=== PATIENT | male | born 1940 | race Caucasian/White ===

== ENCOUNTER → 2019-09-03 13:46 | Outpatient (BNVA) | payer MEDICARE, OTHER, SELFPAY | PROVIDERS: Family Provider Family Medicine; PCP Family Medicine; Visit Provider Urology | DX: N47.1 Phimosis (principal); N48.1 Balanitis; N52.1 Erectile dysfunction due to diseases classified elsewhere | CPT/HCPCS: 81001 ==

== ENCOUNTER → 2020-10-28 09:21 | Outpatient (BNVA) | payer MEDICARE, OTHER, SELFPAY | PROVIDERS: Family Provider Family Medicine; PCP Family Medicine; Visit Provider Urology | DX: N48.1 Balanitis (principal); N39.9 Disorder of urinary system, unspecified; N52.1 Erectile dysfunction due to diseases classified elsewhere | CPT/HCPCS: 81003 ==

== ENCOUNTER 2021-03-24 08:04 | Outpatient (CLI) | payer MEDICARE, BC, SELFPAY ==
[2021-03-24 08:12] VITALS: BMI 27.1
--- NOTE | 2021-03-24 08:12 | NMCV_ITS ---
NM jamaal perf SPECT r/s* [id number] Tona Rose Age: 81 Gender: M : 1940 Exam Date: 03/24/2021 08:12 Ordering Phys: Lake Law M.D ([email or web address]) Technologist: PAULINE Ellison Exam Location: [facility] Indications: SHORTNESS OF BREATH STRESS TEST Please see separate stress test report in [facility] for full findings IMAGE PROTOCOL Rest/Stress 1 Lexiscan Day Radiopharmaceutical Dose (mCi) Administration Site Administered by Rest: Tc-99m 11.0 IV PAULINE Ellison Sestamibi Stress:Tc-99m 32.7 IV PAULINE Garcia Sestamibi Rest: 24-Mar-2021 60 Discovery 630 Stress: 24-Mar-2021 30 Discovery 630 0.4mg Lexiscan. Supine position only as patient was unable to lay prone. SPECT RESULTS Technical Quality: Excellent Raw Data Analysis: Normal Image Corrections: No attenuation or motion correction applied Summed Stress Score: 3 Summed Rest Score: 2 Summed Difference Score: 1 PERFUSION FINDINGS There is a small sized partially reversible perfusion defect in apical lateral wall. This likely represents prior infarct with small area of lana-infarct ischemia. There is also a reversible small in size perfusion defect in mid inferior wall. This is likely from small area of ischemia. FUNCTIONAL RESULTS (calculated via Gated SPECT) Stress Image LV EF (%): 61 Stress EDV (mL):104 TID: 0.97 Stress ESV (mL):41 FUNCTIONAL FINDINGS: There is normal left ventricular systolic function. IMPRESSIONS 1. Abnormal myocardial perfusion imaging. Small sized prior infarct with lana-infarct ischemia seen in lateral wall. 2. Small area of ischemia is noted in inferior wall. 3. LV systolic function is normal. Lake Law MD (Electronically Signed) Final Date: 24 March 2021 14:41 S
--- NOTE | 2021-03-24 08:12 | ECG_ITS ---
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 Interpretive Statements NAME OF STUDY: LEXISCAN SESTAMIBI STRESS TEST INDICATION: [Shortness of Breath, ] Procedure: At the baseline, the blood pressure was 136/103 mmHg with a heart rate of 63 bpm. The electrocardiogram showed normal sinus rhythm, normal axis with normal ST and T's. The Lexiscan was infused over a period of 20 seconds. A total of 0.4 mg of Lexiscan was infused. The stress phase was continued for a total of 5 minutes. Heart rate was at the end of stress phase was 83 bpm and a blood pressure of 124/69 mmHg. The EKG at the peak infusion revealed since normal sinus rhythm with no significant ST-T wave changes, occasional PVC was noted. Sestamibi was injected 20 seconds after the Lexiscan infusion. Blood pressure at the end of recovery phase was 117/65 mmHg with a heart rate of 73 bpm. Conclusion: 1. Normal EKG response to Lexiscan infusion 2. No Lexiscan induced chest pain or cardiac arrhythmia. 3. Normal blood pressure and heart rate response. 4. Sestamibi/sestamibi perfusion scan pending; see separate report. Electronically Signed On 03-27-2021 12:17:02 CDT by Lake Law M.D. [id number]
[2021-03-24] MEDS: regadenoson 0.4 Mg/5 ml Syringe IVP (10:06)
[2021-03-24 10:07] VITALS: BP 117/65; PULSE 84
== END 2021-03-24 08:05 | disposition home or self-care (01) ==
PROVIDERS: PCP Family Medicine; Visit Provider Internal Medicine
DX: R06.02 Shortness of breath (principal); I25.9 Chronic ischemic heart disease, unspecified
CPT/HCPCS: 78452; 93017; A9500; J2785

== ENCOUNTER 2021-04-01 10:45 | Outpatient (CLI) | payer MEDICARE, SELFPAY ==
--- NOTE | 2021-04-01 11:00 | CT_ITS ---
WS: [id number] CT CHEST TECHNIQUE: Noncontrast CT of the chest with coronal and sagittal reformatted images. CLINICAL INFORMATION: Chronic smoker with weight loss COMPARISON: CT December 16, 2018 DLP: 945.[address] scans at [facility] use at least one of these dose optimization techniques: automated e xposure control; mA and/or kV adjustment per patient size (includes targeted exams where dose is matc hed to clinical indication); or iterative reconstruction. FINDINGS: Moderate chronic emphysematous changes. No focal pneumonia or pleural fluid. Patchy micronodular tree -in-bud infiltrates in the right upper lobe anteriorly progressed since the prior examination. Bilate ral bronchovascular thickening with bronchiectasis unchanged from previous. Tree-in-bud type infiltra aleida in the lower lobes are unchanged from previous. Aortic calcification. Coronary calcification. Normal caliber thoracic aorta. Large esophageal hiatal hernia with intrathoracic stomach unchanged from previous. No axillary lymphadenopathy. Adrenal gland s are normal. Bilateral renal cysts. Fatty atrophy of the pancreas. Moderate thoracic kyphosis with h ypertrophic changes. CT/CT chest wo con [id number] IMPRESSION: 1. Patchy micronodular tree-in-bud type infiltrates in both lower lobes are un changed. Progressed Tree-in-bud infiltrates in right upper lobe anteriorly. Thi s can be seen with chronic infectious/inflammatory bronchiolitis. 2. Bronchovascular thickening with bronchiectasis unchanged. 3. No focal pneumonia or pleural fluid. 4. No mediastinal or hilar lymphadenopathy. 5. Large esophageal hiatal hernia with intrathoracic stomach.
--- NOTE | 2021-04-01 11:01 | XR_ITS ---
WS: [id number] PROCEDURE: XR chest 2V* [id number] CLINICAL INFORMATION: COUGH COMPARISON: 3 FINDINGS: Esophageal hiatal hernia. Heart: Normal cardiac silhouette. Lungs: Moderate chronic emphysematous changes. No acute appearing pulmonary infiltrates. No focal pne umonia or pleural fluid. Bones: Mild thoracic kyphosis. Osteopenia. Hypertrophic changes thoracic spine. XR/XR chest 2V* [id number] IMPRESSION: 1. Moderate chronic emphysematous changes. 2. Tree-in-bud type infiltrates better seen on the concurrent CT 3. Esophageal hiatal hernia. 4. No focal pneumonia or pleural fluid.
== END 2021-04-01 10:46 | disposition home or self-care (01) ==
PROVIDERS: PCP Family Medicine; Visit Provider Internal Medicine Pulmonary Disease
DX: F17.210 Nicotine dependence, cigarettes, uncomplicated (principal); R63.4 Abnormal weight loss; R05 Cough; R91.8 Other nonspecific abnormal finding of lung field; K44.9 Diaphragmatic hernia without obstruction or gangrene; J47.9 Bronchiectasis, uncomplicated
CPT/HCPCS: 71046; 71250

== ENCOUNTER → 2021-04-28 11:40 | Outpatient (BNVA) | payer MEDICARE, SELFPAY | PROVIDERS: PCP Family Medicine; Visit Provider Internal Medicine Pulmonary Disease | DX: J44.9 Chronic obstructive pulmonary disease, unspecified (principal); Z01.818 Encounter for other preprocedural examination; Z20.822 Contact with and (suspected) exposure to COVID-19 | CPT/HCPCS: 87635 ==

== ENCOUNTER 2021-05-04 08:53 | Outpatient (CLI) | payer MEDICARE, BC, SELFPAY ==
--- NOTE | 2021-05-04 10:44 | PFTS_ITS ---
Date of Study:05/04/21 Date of Dictation: MECHANICS: Forced vital capacity (FVC) is normal. Forced expiratory volume in one second (FEV1) is normal. FEV1/FVC is reduced. FLOW VOLUME LOOP: Reduced flow at all lung volumes with scooping. LUNG VOLUMES: Total lung capacity (TLC) is normal. Residual volume (RV) is increased. DIFFUSING CAPACITY FOR CARBON MONOXIDE: . INTERPRETATION: The pulmonary function tests are consistent with mild airflow obstruction. There is no significant postbronchodilator response. Lung volumes are consistent with air trapping. Gas exchange (DLCO) is mildly reduced. MTDD
== END 2021-05-04 08:54 | disposition home or self-care (01) ==
PROVIDERS: Visit Provider Internal Medicine Pulmonary Disease
DX: J44.9 Chronic obstructive pulmonary disease, unspecified (principal)
CPT/HCPCS: 94060; 94618; 94726; 94729; J7611

== ENCOUNTER 2021-08-12 22:07 | Emergency (ER) | payer MEDICARE, OTHER, SELFPAY ==
[2021-08-12 22:12] VITALS: BP 159/98; PULSE 103; RESP 16; TEMP 36.3; O2SAT 97
--- NOTE | 2021-08-13 01:00 | PC.NURSE ---
patient states was laying in bed when throat started to hurt, became SOB, and started to cough. states this has been happening for years and just now started to seek medical attention. states attempted to get scope done at [facility] but the machine did not work. managing secretions, speech clear, noted with cough that sounds dry.
--- NOTE | 2021-08-13 01:30 | XRR_ITS ---
PROCEDURE INFORMATION: Exam: XR Soft Tissue Neck Exam date and time: 08/13/2021 1:30 AM Age: 81 years old Clinical indication: Tonsilitis and other: Possible foreign body; Prior surgery; Patient HX: Patient states feels like something stuck in throat. ; Additional info: Fb sensation TECHNIQUE: Imaging protocol: XR of the soft tissues of the neck. COMPARISON: CT neck w con* [id number] 11/18/2018 9:03 AM FINDINGS: Airway: No radiopaque foreign body in the airway. Soft tissues: Small chronic radiopaque foreign body in the submental space. No radiopaque foreign body in the cervical esophagus. Bones/joints: The cervical spine demonstrates marked degenerative changes at multiple levels. XR/XR soft tissue neck [id number] IMPRESSION: 1. No acute abnormality. 2. No radiopaque foreign body in the pharynx.
[2021-08-13] MEDS: lidocaine 2% viscous 15 ML, aluminum-mag hydrox-simethicon 30 ML, sucralfate oral liq 1 GM PO (01:45)
[2021-08-13] MEDS: lidocaine 2% viscous 15 mL UDC 10 ML MUCOUS MEM (02:50)
[2021-08-13 02:55] VITALS: BP 156/80; PULSE 87; RESP 16; TEMP 36.9; O2SAT 98
--- NOTE | 2021-08-13 04:20 | ED_ITS ---
HPI - Skin/Abscess/Foreign Bdy General: Chief complaint: Airway/Esophagus Foreign Body Stated complaint: sob Time Seen by Provider: 08/13/21 00:51 History of Present Illness: 81-year-old male with foreign body sensation in his throat. He states that he choked while taking some cough medicine, and feels like something is stuck in the back of his throat. He is able to swallow and tolerate his own secretions. He is still coughing. He states that this sensation is triggering his cough. No vomiting. No shortness of breath, no airway swelling. complaint: foreign body Onset (ago): hour(s) Location: neck Severity: moderate Quality: burning Pain Consistency: constant Relieving factors: none Exacerbating factors: none Associated symptoms: Reports cough and nausea; Deny chills, fever(s), itching, rigidity, short of breath or vomiting Review of Systems Const: Denies: fever(s) or chills Eyes: Denies: change in vision ENMT: Reports: throat pain; Denies: uvular edema Card: Denies: chest pain or palpitations Resp: Reports: non-productive cough; Denies: dyspnea or productive cough GI: Reports: nausea; Denies: vomiting Skin/Breast: Denies: rash Neuro: Denies: headache(s) PFSH ED PFSH: Medical History (Updated 08/13/21 @ 02:51 by Flex Valadez DO) Balanitis Coronary artery disease Erectile dysfunction Essential hypertension Surgical History H/O heart artery stent H/O neck surgery H/O shoulder surgery Family History Mother , 80 CAD (coronary artery disease) Cancer Father , 90 CAD (coronary artery disease) Social History Quit status (tobacco): has tried quititng Alcohol intake: never Marital status: / Current occupational status: retired History of recent travel: No Physical Exam Const: COMMON NORMALS: patient oriented x3 and no limitations GENERAL APPEARANCE: cooperative and anxious HENMT: COMMON NORMALS: normocephalic, atraumatic and Normal external nose present HEAD & SCALP: normocephalic and atraumatic FACE & SINUS: normal facial exam NOSE: Normal external nose present and Normal nares present THROAT: posterior oropharynx abnormal erythema; no cobblstoning, no edema and no exudates; no uvular edema Eye: COMMON NORMALS: Equal, round and reactive pupils present and EOMs intact bilaterally GENERAL EYE: appearance normal, both eyes and all related structures PUPIL: Yes Equal, round and reactive pupils present Chest: COMMONS NORMALS: normal inspection of the chest Resp: COMMON NORMALS: normal respiratory effort and No use of accessory muscles EFFORT & INSPECTION: Yes able to speak in complete sentences and No labored Cardio: COMMON NORMALS: regular rate and regular rhythm RATE: regular rate RHYTHM: regular rhythm GI: COMMON NORMALS: Normal to inspection, nondistended, normoactive bowel sounds present and Soft to palpation PALPATION: Yes Soft to palpation Neuro: COMMON NORMALS: patient oriented x3 Course Vital Signs: Vital signs: Vital Signs Temperature 98.4 F 08/13/21 02:55 Pulse Rate 87 08/13/21 02:55 Respiratory Rate 16 08/13/21 02:55 Blood Pressure 156/80 08/13/21 02:55 Pulse Oximetry 98 08/13/21 02:55 MDM - Skin/Abscess/Foreign Bdy Medicial Decision Making GI cocktail seem to help with pain. X-ray soft tissue of the neck reveals a subcutaneous foreign body that is been there chronically. The patient knows about this. The airway is patent with no swelling, radiopaque foreign body, or other problem. He will be allowed home with viscous lidocaine swallows, a tapering dose of steroid, and close follow-up. Lab Data Radiology Impressions Soft Tissue Neck X-Ray 08/13/21 01:30 IMPRESSION: 1. No acute abnormality. 2. No radiopaque foreign body in the pharynx. Discharge Plan Discharge Patient Disposition: Home Clinical Impression: Abrasion of pharynx Condition: Stable Prescriptions: New Lidocaine Viscous 2 % solution 5 ml mucous membrane TID PRN (Reason: pain) Qty: 100 0RF Medrol (Zaki) 4 mg tablets,dose pack See Rx Instructions .ROUTE .COMPLEX Qty: 21 0RF Rx Instructions: orally per package directions No Action fluticasone propionate 50 mcg/actuation spray,suspension 2 spray intranasal DAILY 180 Days Qty: 16 5RF Rx Instructions: administer into each nostril nystatin-triamcinolone 100,000-0.1 unit/g-% cream 1 applic TOPICAL DAILY 0RF nitroglycerin [Nitrostat] 0.3 mg tablet, sublingual 0.3 mg SUBLINGUAL Q5M PRN0RF aspirin [Adult Low Dose Aspirin] 81 mg tablet,delayed release (DR/EC) 81 mg PO DAILY 0RF tamsulosin [Flomax] 0.4 mg capsule 0.4 mg PO DAILY 0RF zolpidem [Ambien] 5 mg tablet PO .HS 0RF pantoprazole 40 mg tablet,delayed release (DR/EC) 40 mg PO DAILY 0RF cetirizine [Zyrtec] 10 mg tablet 5 mg PO DAILY Qty: 10 0RF albuterol sulfate [Ventolin HFA] 90 mcg/actuation HFA aerosol inhaler 1 inh inhalation QID PRN (Reason: shortness of breath or wheezing) Qty: 8.5 3RF Spiriva Respimat 2.5 mcg/actuation mist 2 puff inhalation DAILY Qty: 4 3RF levofloxacin 500 mg tablet 500 mg PO DAILY 15 Days Qty: 15 0RF omeprazole 20 mg capsule,delayed release(DR/EC) 20 mg PO DAILY 180 Days Qty: 30 5RF omega-3 fatty acids [Fish Oil Concentrate] 1,000 mg capsule 1,000 mg PO BID 90 Days Qty: 180 3RF chlorthalidone 25 mg tablet 12.5 mg PO DAILY Qty: 45 3RF lisinopril 10 mg tablet 10 mg PO DAILY Qty: 90 3RF Discharge Orders: Discharge ED (Routine); Ordered 08/13/21 Ordered By: Flex Valadez Discharge Diet: Advance as tolerated and Clear Liquid Discharge Activity: Resume usual activity Activity Restrictions/Additional Instructions: You have an abrasion to your pharynx. Medication as directed, which will help symptoms and speed healing time. Return for fever, worsening pain despite treatment, inability to swallow, shortness of breath, any other concerning symptoms. 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
== END 2021-08-13 02:56 | disposition home or self-care (01) ==
PROVIDERS: Emergency Provider Emergency Medicine
DX: S10.11XA Abrasion of throat, initial encounter (principal); X58.XXXA Exposure to other specified factors, initial encounter; Z79.82 Long term (current) use of aspirin; I25.10 Atherosclerotic heart disease of native coronary artery without angina pectoris; I10 Essential (primary) hypertension
CPT/HCPCS: 70360; 99283

== ENCOUNTER → 2021-10-06 14:19 | Outpatient (BNVA) | payer MEDICARE, BC, SELFPAY | PROVIDERS: Visit Provider Internal Medicine Pulmonary Disease | DX: J32.9 Chronic sinusitis, unspecified; I25.10 Atherosclerotic heart disease of native coronary artery without angina pectoris; R63.4 Abnormal weight loss; J47.9 Bronchiectasis, uncomplicated; R09.82 Postnasal drip; Z71.6 Tobacco abuse counseling; Z87.891 Personal history of nicotine dependence | CPT/HCPCS: 87015; 87070; 87077; 87116; 87186; 87205; 87206; 87801; 99214 ==

== ENCOUNTER 2021-12-07 10:51 | Emergency (ER) | payer MEDICARE, BC, SELFPAY ==
--- NOTE | 2021-12-07 10:57 | CT_ITS ---
WS: [id number] CT HEAD NONCONTRAST HISTORY: STROKE VS HEAD BLEED TECHNIQUE: Contiguous axial imaging performed through the brain in 2.5 mm imaging. Bone and soft tiss ue windows. Sagittal and coronal reformats reviewed. All CT scans at [facility] use at least one of these dose optimization techniques: automated exposure control; mA and/or kV adjustment per pa tient size (includes targeted exams where dose is matched to clinical indication); or iterative recon struction. DLP: 1263.94 mGy-cm. COMPARISON: None available. Significant motion artifact. Focal area of decreased attenuation with developing loss of the cristina-white matter junction involving the LEFT MCA territory. Increased fluid attenuation along the cortical spinal tract and angelo radiat a and centrum semiovale ovale. No hemorrhage. There is increased density in the LEFT M2 segment and p robably extending to the very distal LEFT supraclinoid ICA. Mild atrophy is diffuse bilaterally with additional chronic small vessel ischemic disease. Ventricles: Normal size with no hydrocephalus. Paranasal sinuses: Significant motion artifact. There is sinus disease but the extent is difficult to qualify. Mastoid air cells: Small amount of fluid in the LEFT mastoid air cells. Calvarium and scalp: No skull fracture. There is a soft tissue and destructive bone lesion involving the posterior RIGHT parietal bone measuring at least 2.9 x 0.7 cm. There is destruction of the inner and outer cortex but greatest involving the outer cortex with soft tissue. CT/CT head wo con* [id number] IMPRESSION: 1. Acute, nonhemorrhagic LEFT MCA territory infarct. 2. LEFT M1 acute thrombus. There is probably small amount of thrombus in the L EFT supraclinoid ICA also. 3. Destructive bone lesion involving the posterior RIGHT parietal bone with so ft tissue. Metastatic lesion should be considered. Notified Gilberto Lowe MD at 12/07/2021 11:15 AM. Report called to the emerge ncy department to be relayed to Dr. Lowe.
[2021-12-07 11:08] VITALS: PULSE 102; RESP 15; TEMP 36.7; O2SAT 97; BMI 26.0
--- NOTE | 2021-12-07 11:29 | ECG_ITS ---
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 Measurements Intervals [place] Rate: 98 P: SC: QRS: 61 QRSD: 106 T: 0 QT: 377 QTc: 482 Interpretive Statements ATRIAL FIBRILLATION WITH ABERRANT CONDUCTION OR VENTRICULAR PREMATURE COMPLEXES ABNORMAL RHYTHM ECG Compared to ECG 09/12/2015 06:08:19 Ventricular premature complex(es) now present Aberrant conduction of supraventricular beat(s) now present Sinus bradycardia no longer present First degree AV block no longer present Myocardial infarct finding no longer present Electronically Signed On 12-07-2021 21:51:07 CDT by Justine Curry M.D. [id number] tate
--- NOTE | 2021-12-07 11:36 | CT_ITS ---
WS: [id number] CT ANGIOGRAM CEREBRAL AND CAROTID ARTERIES HISTORY: stroke TECHNIQUE: CT angiogram is performed of the carotid and cerebral arteries. During arterial injection imaging is obtained from the skull vertex to the aortic arch in 1.25 mm imaging. Coronal and sagittal reformats are submitted. Additional multi planar reformats of the carotid and cerebral arteries are submitted, MIP imaging also reviewed. NASCET criteria utilized. All CT scans at [facility] us e at least one of these dose optimization techniques: automated exposure control; mA and/or kV adjust ment per patient size (includes targeted exams where dose is matched to clinical indication); or iter ative reconstruction. CONTRAST: Omnipaque 300; 50 mL IV. DLP: 2426.05 mGy.cm COMPARISON: None available. Carotid Angiogram: Right carotid: Common carotid artery: Arises normally from the innominate artery. No significant plaque or stenosis. Internal carotid artery: Calcified plaque begins at the bifurcation. Prominent loop of intracranial c arotid artery at the skull base. Extensive scattered calcified plaque with areas of moderate to high- grade stenosis involving the intracranial carotid artery. External carotid artery: Patent. Left carotid: Common carotid artery: Intimal thickening. Calcified plaque increases at the bifurcation. Internal carotid artery: Decreased flow and decreased density within the carotid artery. The caliber of the lumen is becoming very small caliber of the skull base and then becomes occluded. External carotid artery: Patent. Right vertebral artery: Mild atherosclerosis. Left vertebral artery: Atherosclerosis. No occlusion. Subclavian arteries: Atherosclerotic plaque. No high-grade stenosis. Upper thorax: No acute abnormality. Atherosclerotic plaque within the aortic arch. Thyroid gland: Atrophic small gland. Osseous structures: Advanced degenerative disc disease and spondylitic changes in the cervical spine. No acute fracture. CEREBRAL ANGIOGRAM: Intracranial vertebral arteries: Small caliber but patent. Basilar artery: No significant stenosis or occlusion. No aneurysm. Intracranial Internal carotid arteries: Multifocal areas of plaque and stenoses beginning at the skul l base involving the RIGHT ICA. At least 50% stenosis at the skull base of the intracranial carotid a rtery and on also involving the cavernous carotid artery. 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 Middle cerebral arteries: RIGHT MCA is mildly narrowed due to atherosclerotic plaque. Complete occlus ion and thrombus within the LEFT M1 and partial narrowing M2 segments. Very small reconstitution in t he LEFT M2 segment of the MCA. Paucity of vessels in the distal LEFT MCA territory. Anterior cerebral arteries and ACOM: Patent. The LEFT A1 segment is small caliber but is patent. Posterior cerebral arteries and PCOM's: Normal posterior cerebral arteries. RIGHT P-comm is patent. L EFT P-comm is not identified. Opacification of the dural venous sinuses is limited by amount of contrast is injected. Mastoid air cells: Normal. Paranasal sinuses: Extensive mucoperiosteal thickening throughout the sinus cavities. Calvarium: Patient has a known and previously described destructive osseous lesion with soft tissue i nvolving the RIGHT parietal bone. CT/CT angio headneck* [id number] IMPRESSION: 1. 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 Small caliber LEFT M2 segment and paucity of arterial flow dist ally. This corresponds to the noncontrast head CT findings. 2. Multifocal areas of moderate stenosis involving the intracranial RIGHT ICA. 3. Occluded LEFT posterior communicating artery.
[2021-12-07 11:45] LABS: Basophils % 0.1 %; Eosinophils % 0.1 %; Hematocrit 42.6 % (42.0-52.0); Lymphocytes # 1.5 10^3/uL (0.8-4.8); Lymphocytes % 21.7 %; Mean Corpuscular HGB Conc 32.9 g/dL (30.0-36.0); Mean Corpuscular Hemoglobin 28.6 pg (28.0-34.0); Mean Corpuscular Volume 87.1 fl (80-94); Mean Platelet Volume 9.9 fL (7.4-10.4); Monocytes # 0.4 10^3/uL (0.2-0.9); Monocytes % 6.2 %; Neutrophils # 5.07 10^3/uL (1.8-7.7); Neutrophils % 71.6 %; Nucleated Red Blood Cells % 0 %; Platelet Count 133 10^3/cmm (130-400); Red Blood Count 4.89 10^6/uL (4.1-5.3); Red Cell Distribution Width 14.1 % (12.1-15.1); White Blood Count 7.1 10^3/uL (4.0-10.0)
[2021-12-07] MEDS: iohexol 300 mg/mL 100 mL Btl IV (11:57)
[2021-12-07 12:11] LABS: INR 1.04 (0.8-1.2)
[2021-12-07 12:12] LABS: Partial Thromboplastin Time 44.6 SECONDS (23.9-36.7)
[2021-12-07 12:13] LABS: Alanine Aminotransferase 24 U/L (0-41); Albumin Level 3.9 g/dL (3.5-5.2); Alkaline Phosphatase 70 IU/L (40-130); Anion Gap 16.7 (5-19); Aspartate Amino Transferase 38 U/L (0-40); Blood Urea Nitrogen 13 mg/dL (8-23); Calcium 8.7 mg/dL (8.5-10.5); Carbon Dioxide 23 mmol/L (22-29); Chloride 101 mmol/L (98-107); Globulin 2.8 g/dL (1.3-4.6); Glucose 96 mg/dL (65-115); Osmolality Calculated 284 mOsm/kg (285-295); Potassium 3.7 mmol/L (3.5-5.1); Sodium 137 mmol/L (136-145); Total Bilirubin 0.8 mg/dL (0.15-1.2); Total Protein 6.7 g/dL (6.6-8.7)
--- NOTE | 2021-12-07 12:21 | PC.NURSE ---
Addendum to initial assessment: Heart sounds s1/s2, anterior lung sounds clear bilaterally, pt not requiring O2 at this time, breathing even and unlabored, vss. Cap refill<3s. Pt non-verbal at this time, ability to follow commands is present, but limited.
[2021-12-07 12:22] VITALS: BP 163/120; PULSE 96; RESP 18; O2SAT 96
[2021-12-07 12:26] LABS: Amphetamines Screen Urine Negative (Negative); Barbiturates Screen Urine Negative (Negative); Benzodiazepines Screen Urine Negative (Negative); Cocaine Screen Urine Negative (Negative); Opiate Screen Urine Negative (Negative); PCP Screen Urine Negative (Negative); THC Screen Urine Negative (Negative)
--- NOTE | 2021-12-07 12:26 | ED_ITS ---
HPI - Altered Mental Status General: Chief Complaint: Altered Mental Status Stated Complaint: STROKE/ HYPERTENSIVE Time Seen by Provider: 12/07/21 10:57 History of Present Illness: Patient is brought in by EMS after being found by family unresponsive. Patient was last seen normal last night. He lives alone and per family normally talks and walks and takes care of himself. This morning they found him lying in bed not talking. On physical exam he has a right facial droop with a dense right hemiparesis, aphasia, and forced left gaze deviation. Stat CT shows likely left MCA stroke. Review of Systems General: Reports: Other (ROS limited due to mental status) Const: Denies: fever(s) or body aches Eyes: Denies: change in vision or blurry vision ENMT: Denies: throat pain or odynophagia Card: Denies: chest pain or palpitations Resp: Denies: dyspnea or productive cough GI: Denies: abdominal pain, nausea or vomiting : Denies: flank pain or dysuria Musc: Denies: neck pain or back pain Skin/Breast: Denies: rash or pruritus Neuro: Reports: numbness in extremities and weakness in extremities; Denies: headache(s) Psych: Denies: anxiety or change in appetite Endo: Denies: polyuria or excessive sweating PFSH ED PFSH: Medical History (Updated 12/07/21 @ 17:49 by Gilberto Lowe MD) Balanitis Coronary artery disease Erectile dysfunction Essential hypertension Surgical History H/O heart artery stent H/O neck surgery H/O shoulder surgery Family History Mother , 80 CAD (coronary artery disease) Cancer Father , 90 CAD (coronary artery disease) Social History Smoking and tobacco status: former smoker Quit status (tobacco): has tried quititng Alcohol intake: never Marital status: / Current occupational status: retired History of recent travel: No Physical Exam Const: COMMON NORMALS: healthy appearing OTHER: Patient is awake and will follow commands, he is aphasic HENMT: COMMON NORMALS: normocephalic and atraumatic HEAD & SCALP: normocephalic and atraumatic Eye: COMMON NORMALS: Equal, round and reactive pupils present and EOMs intact bilaterally PUPIL: Yes Equal, round and reactive pupils present Neck/C-Spine: COMMON NORMALS: full ROM and supple Resp: COMMON NORMALS: normal respiratory effort, No retractions and No use of accessory muscles Cardio: COMMON NORMALS: regular rate and regular rhythm RATE: regular rate RHYTHM: regular rhythm GI: COMMON NORMALS: Normal to inspection, nondistended, normoactive bowel sounds present, Soft to palpation and non-tender PALPATION: Yes Soft to palpation Back/Pelvis: COMMON NORMALS: thoracic and lumbar spine normal to inspection and no thoracic nor lumbar tenderness Extremity: COMMON NORMALS: normal to inspection and full ROM Neuro: OTHER: Patient is aphasic with a left gaze deviation, right dense hemiparesis. He will follow basic commands, NIHSS of 22 Psych: COMMON NORMALS: mental status grossly normal and cooperative Skin: COMMON NORMALS: no rashes or lesions noted and no wounds GENERAL SKIN EXAM: no rashes or lesions noted Urinary Catheter Management: Daniels: Cath Placed During This Visit: yes Urinary Catheter Date of Insertion: 12/07/21 Urinary Catheter Time of Insertion: 11:50 Course Vital Signs: Vital signs: Vital Signs Temperature 98.1 F 12/07/21 11:08 Pulse Rate 96 12/07/21 12:22 Respiratory Rate 18 12/07/21 12:22 Blood Pressure 163/120 12/07/21 12:22 Pulse Oximetry 96 12/07/21 12:22 MDM - Altered Mental Status Medical Decision Making Patient is brought in by EMS after being found by family unresponsive. Patient was last seen normal last night. He lives alone and per family normally talks and walks and takes care of himself. This morning they found him lying in bed not talking. On physical exam he has a right facial droop with a dense right hemiparesis, aphasia, and forced left gaze deviation. Stat CT shows likely left MCA stroke. Will check labs, consult neurology, obtain CTA head and neck, and reassess. On reassessment I talked to the patient his family about the test results. I discussed the case with neurology here as well as neurology at [facility], and we will transfer for further work-up and treatment of his stroke. The patient is not an IV or IA tPA candidate due to timing of onset of symptoms. Lab Data : 12/07/21 11:15 12/07/21 11:[address] 12/07/21 10:57 IMPRESSION: 1. Acute, nonhemorrhagic LEFT MCA territory infarct. 2. LEFT M1 acute thrombus. There is probably small amount of thrombus in the LEFT supraclinoid ICA also. 3. 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 Metastatic lesion should be considered. Notified Gilberto Lowe MD at 12/07/2021 11:15 AM. Report called to the emergency department to be relayed to Dr. Lowe. Head/Neck CTA 12/07/21 11:36 IMPRESSION: 1. 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 Small caliber LEFT M2 segment and paucity of arterial flow distally. This corresponds to the noncontrast head CT findings. 2. Multifocal areas of moderate stenosis involving the intracranial RIGHT ICA. 3. Occluded LEFT posterior communicating artery. Laboratory Results WBC 7.1 10^3/uL (4.0-10.0) 12/07/21 11:15 RBC 4.89 10^6/uL (4.1-5.3) 12/07/21 11:15 Hgb 14.0 g/dL (11.7-16.6) 12/07/21 11:15 Hct 42.6 % (42.0-52.0) 12/07/21 11:15 MCV 87.1 fl (80-94) 12/07/21 11:15 MCH 28.6 pg (28.0-34.0) 12/07/21 11:15 MCHC 32.9 g/dL (30.0-36.0) 12/07/21 11:15 RDW 14.1 % (12.1-15.1) 12/07/21 11:15 Plt Count 133 10^3/cmm (130-400) 12/07/21 11:15 MPV 9.9 fL (7.4-10.4) 12/07/21 11:15 Neut % (Auto) 71.6 % 12/07/21 11:15 Lymph % (Auto) 21.7 % 12/07/21 11:15 Nash % (Auto) 6.2 % 12/07/21 11:15 Eos % (Auto) 0.1 % 12/07/21 11:15 Baso % (Auto) 0.1 % 12/07/21 11:15 Neut # (Auto) 5.07 10^3/uL (1.8-7.7) 12/07/21 11:15 Lymph # (Auto) 1.5 10^3/uL (0.8-4.8) 12/07/21 11:15 Nash # (Auto) 0.4 10^3/uL (0.2-0.9) 12/07/21 11:15 Eos # (Auto) 0.0 10^3/uL (0.0-0.8) 12/07/21 11:15 Baso # (Auto) 0.0 10^3/uL (0.0-0.1) 12/07/21 11:15 Nucleated RBC % (auto) 0 % 12/07/21 11:15 Nucleated RBCs # 0.0 /100WBC 12/07/21 11:15 PT 13.90 SECONDS (12.1-14.9) 12/07/21 11:15 INR 1.04 (0.8-1.2) 12/07/21 11:15 APTT 44.6 SECONDS (23.9-36.7) H 12/07/21 11:15 Sodium 137 mmol/L (136-145) 12/07/21 11:15 Potassium 3.7 mmol/L (3.5-5.1) 12/07/21 11:15 Chloride 101 mmol/L (98-107) 12/07/21 11:15 Carbon Dioxide 23 mmol/L (22-29) 12/07/21 11:15 Anion Gap 16.7 (5-19) 12/07/21 11:15 BUN 13 mg/dL (8-23) 12/07/21 11:15 Creatinine 0.8 mg/dL (0.7-1.2) 12/07/21 11:15 GFR Calculation Not Reportable 12/07/21 11:15 Glucose 96 mg/dL (65-115) 12/07/21 11:15 Calculated Osmolality 284 mOsm/kg (285-295) L 12/07/21 11:15 Calcium 8.7 mg/dL (8.5-10.5) 12/07/21 11:15 Total Bilirubin 0.8 mg/dL (0.15-1.2) 12/07/21 11:15 AST 38 U/L (0-40) 12/07/21 11:15 ALT 24 U/L (0-41) 12/07/21 11:15 Alkaline Phosphatase 70 IU/L (40-130) 12/07/21 11:15 Total Protein 6.7 g/dL (6.6-8.7) 12/07/21 11:15 Albumin 3.9 g/dL (3.5-5.2) 12/07/21 11:15 Globulin 2.8 g/dL (1.3-4.6) 12/07/21 11:15 Urine Color Yellow (Yellow) 12/07/21 11:40 Urine Appearance Clear (CLEAR) 12/07/21 11:40 Urine pH 7 (5-7) 12/07/21 11:40 Ur Specific [place] 1.010 (1.005-1.030) 12/07/21 11:40 Urine Protein Neg (Negative) 12/07/21 11:40 Urine Glucose (UA) Norm (Normal) 12/07/21 11:40 Urine Ketones 1+ (Negative) H 12/07/21 11:40 Urine Blood 2+ (Negative) H 12/07/21 11:40 Urine Nitrate Negative (Negative) 12/07/21 11:40 Urine Bilirubin Neg (Negative) 12/07/21 11:40 Urine Urobilinogen Norm mg/dL (Negative) 12/07/21 11:40 Ur Leukocyte Esterase Negative (Negative) 12/07/21 11:40 Urine RBC 0-4 /hpf (0-2) H 12/07/21 11:40 Urine WBC 0-4 /hpf (0-5) H 12/07/21 11:40 Ur Squamous Epith Cells 0-4 /hpf (0-5) H 12/07/21 11:40 Amorphous Sediment Not Reportable 12/07/21 11:40 Urine Bacteria None /hpf (NONE) 12/07/21 11:40 Urine Opiates Screen Negative ng/mL (Negative) 12/07/21 11:40 Ur Barbiturates Screen Negative ng/mL (Negative) 12/07/21 11:40 Ur Phencyclidine Scrn Negative ng/mL (Negative) 12/07/21 11:40 Ur Amphetamines Screen Negative ng/mL (Negative) 12/07/21 11:40 U Benzodiazepines Scrn Negative ng/mL (Negative) 12/07/21 11:40 Urine Cocaine Screen Negative ng/mL (Negative) 12/07/21 11:40 U Marijuana (THC) Screen Negative ng/mL (Negative) 12/07/21 11:40 Discharge Plan Discharge Patient Disposition: Xfer Short-Term Hosp Clinical Impression: Stroke Condition: Stable Discharge Orders: Transfer Out of Facility (Order); Ordered 12/07/21 Ordered By: Gilberto Lowe Patient Instructions: Opioid Safety Coding Level of Care Code ED 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
[2021-12-07 13:32] LABS: Add Urine Microscopic? YES; Bilirubin Urine Neg (Negative); Blood Urine 2+ (Negative); Glucose Urine UA Norm (Normal); Ketones Urine 1+ (Negative); Leukocyte Esterase Urine Negative (Negative); Nitrate Urine Negative (Negative); Protein Urine Neg (Negative); Urine Appearance Clear (CLEAR); Urine Color Yellow (Yellow); Urobilinogen Urine Norm (Negative); pH Urine 7 (5-7)
[2021-12-07 13:33] LABS: Add Urine Culture? No; RBC Urine 0-4 /hpf (0-2); Squamous Epithelial Cell Urine 0-4 /hpf (0-5); WBC Urine 0-4 /hpf (0-5)
--- NOTE | 2021-12-07 13:34 | PM.SAN ---
Stroke Alert Activation ED Arrival Date: 12/07/21 Other Last Known Well Infomation: I was called for stroke by Dr. Lowe for this 81-year-old man who was last known normal less than 24 hours ago. He was outside of the window for tPA. He was last known to be normal at 7 PM last night when his daughter called him on the phone. This morning his daughter called and she could not get an answer. His granddaughter noticed that he was a little confused yesterday but that is not unusual for him. He came to the emergency department where he was found to have dense right hemiplegia, left gaze preference and global aphasia. CT scan of the head was reviewed by me and shows mild edema in the distribution of the left middle cerebral artery. There was not severe brain edema. There was a string sign in the left middle cerebral artery. I talked with Dr. Lowe and recommended transfer for embolectomy. CT angiogram now also shows occlusion of the left carotid artery just below the siphon. I reviewed those images with Dr. Roe. The patient is in the process of transfer. I talked with his granddaughter and apprised her of the findings and the reasoning behind transfer. It is raining and he cannot be transferred by air at this time so we are getting him on the road as quickly as we can. I talked with Dr. Lowe and was present during his conversation with [facility]. Stroke Alert Activated by: Dr. Lowe NIH stroke score NIHSS: Level Of Consciousness - 1a: 2 Level Of Consciousness Questions - 1b: Neither Correct Level Of Consciousness Commands - 1c: Neither Correct Best Gaze - 2: Forced Deviation Visual [place] - 3: Complete Hemianopia Facial Palsy - 4: Partial Paralysis Motor Arm Right - 5: No Effort Against [place] (Flexor posturing with nailbed pressure) Motor Arm Left - 5: No Drift Motor Leg Right - 6: No Movement Motor Leg Left - 6: No Drift Limb Ataxia - 7: Absent Sensory - 8: Normal (He reacts to touch and pain on the right) Best Language - 9: Mute; Global Aphasia Dysarthia - 10: Normal Extinction And Inattention - 11: 0 Score: Total Score: 22 Stroke Alert Data/Treatment CT Impression: ? 1.? 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 Small caliber LEFT M2 segment and paucity of arterial flow distally. This corresponds to the noncontrast head CT findings. 2.? Multifocal areas of moderate stenosis involving the intracranial RIGHT ICA. 3.? Occluded LEFT posterior communicating artery. Signed By: Faye Roe DO Signed Date/Time: 12/07/21? Stroke Risk Factors: coronary artery disease, hypertension and previous [place] tPA Contraindication: tPA Contraindication: Treatment not indcated and Medical contraindication tPA Admin Prior to Arrival: No Other Patient & Family Education: His granddaughter was present at the bedside and I talked with her about plan for transfer for potential embolectomy. Embolectomy will depend on further information from perfusion scan. Transfer to [facility]. Standardized Stroke Orders Used: Yes Critical Care Time Critical Care Time: 30 - 74 mins Coding Level of Care Code Acute Merchandising Execution Manager for Mariposa Chavez
== END 2021-12-07 13:57 | disposition short-term general hospital (02) ==
PROVIDERS: Emergency Provider Emergency Medicine
DX: I63.29 Cerebral infarction due to unspecified occlusion or stenosis of other precerebral arteries (principal); I63.232 Cerebral infarction due to unspecified occlusion or stenosis of left carotid arteries; R29.729 NIHSS score 29; I25.10 Atherosclerotic heart disease of native coronary artery without angina pectoris; I10 Essential (primary) hypertension
CPT/HCPCS: 51702; 70450; 70496; 70498; 80053; 80306; 81001; 85025; 85610; 85730; 93005; 99285; 99291; Q9967